=== PATIENT | male | born 1965 | race Caucasian/White ===

== ENCOUNTER → 2017-05-26 | Outpatient (CLI) | payer OTHER ==
[~2017-05-26] MED LIST: HYDR25TA4 PO; MELO15TA4 PO; METO50TA7 PO; MULT-506 PO
--- NOTE | 2017-05-26 19:23 | DIAGNOSTIC IMAGING REPORT ---
MRI OF THE RIGHT UPPER EXTREMITY CLINICAL HISTORY: Right arm mass of several years duration. COMPARISON STUDY: No priors. TECHNIQUE: MRI of the right upper extremity at the level of the mid to distal humerus is performed utilizing various T1 and T2-weighted sequences in the axial, sagittal, and coronal planes. IV contrast was not administered for this examination. FINDINGS: The visualized humerus demonstrates normal marrow signal intensity. There is no MRI evidence of fracture. The regional musculature is normal in bulk and signal intensity. There is a lobulated and well-circumscribed mass lesion identified within the lateral aspect of the triceps musculature. This measures approximately 8 x 5 x 3 cm and this follows fat signal intensity on all sequences. No additional lesion is identified. Trace joint fluid is suggested in the elbow. IMPRESSION: There is an approximately 8 cm well-circumscribed/lobulated lesion identified within the lateral aspect of the triceps musculature as above. This follows fat on all sequences and although pathologically indeterminant is typical in appearance for a lipoma. Dictated: 05/26/2017 4:26 PM Transcribed: 05/26/2017 7:23 PM [email or web address] Electronically signed by: Guero Bridges M.D. 05/26/2017 8:10 PM Dictated Date/Time: 05/26/2017 4:26 PM
== END | disposition home or self-care (01) ==
LOC: C.MRIBC 15:06
PROVIDERS: ATTEND Orthopaedic Surgery
DX: D17.23 Benign lipomatous neoplasm of skin and subcutaneous tissue of right leg (principal)

== ENCOUNTER → 2017-06-18 | Outpatient (CLI) | payer OTHER | END | disposition home or self-care (01) | LOC: C.CPL 08:10 | PROVIDERS: ATTEND Orthopaedic Surgery | DX: D17.21 Benign lipomatous neoplasm of skin and subcutaneous tissue of right arm (principal); Z01.810 Encounter for preprocedural cardiovascular examination ==

== ENCOUNTER → 2017-06-25 | Day surgery (SDC) | payer OTHER ==
[2017-06-16 11:30] VITALS: Ht 188 cm; Wt 127.3 kg
[~2017-06-25] VITALS: Ht 188 cm; Wt 127.3 kg
[~2017-06-25] MED LIST changes: +ATROPINE SULFATE 0.1 MG/ML 5ML SYR IV PRN; +CEFAZOLIN 2000MG IV PUSH 10 ML IV SCH; +DEXAMETHASONE SOD INJ 4 MG/ML VIAL ONE; +EpHEDrine SULFATE INJ 50 MG/ML AMP IV PRN; +FENTANYL CITRATE INJ 50 MCG/1 ML 2 ML VIAL IV PRN; +FENTANYL CITRATE INJ 50 MCG/1 ML 2 ML VIAL ONE; +HYDR-5688 PO; +HYDROCODONE/ACETAMOPHEN 5/325MG TAB PO PRN; +HYDROmorphone INJ 1 MG/ML SYR IV PRN; +LACTATED RINGER'S 1000ML 1,000 ML IV SCH; +LIDOCAINE HCL 2% 2 ML VIAL (20MG/ML) ONE; +LIDOCAINE HCL 2% LOCAL 20 ML VIAL ONE; +MIDAZOLAM HCL 1 MG/ML 2ML VIAL ONE; +ONDANSETRON INJ 2 MG/ML 2 ML VIAL IV PRN; +ONDANSETRON INJ 2 MG/ML 2 ML VIAL ONE; +PROMETHAZINE HCL INJ 12.5 MG in SODIUM CHLORIDE 0.9% 50ML 50 ML IV PRN; +PROPOFOL IV EMULSION 10 MG/ML 20 ML VIAL IV ONE; +SODIUM CHLORIDE 0.9% 1000ML 1,000 ML IV SCH
--- NOTE | 2017-06-25 06:59 | History & Physical Bridge - [place] ---
H&P Re-Evaluation Bridge Note: I have examined the patient, reviewed the History & Physical and in the interval since the performance of the History & Physical I have noted the following changes of clinical significance: No changes noted
--- NOTE | 2017-06-25 07:33 | OPERATIVE REPORT ---
DATE OF OPERATION: 06/25/2017 PREOPERATIVE DIAGNOSIS: Lipoma of the right triceps. POSTOPERATIVE DIAGNOSIS: Same. PROCEDURE: Excision of lipoma of the right triceps. SURGEON: Dr. Yves Villagran. SASH INSTALLER: Nicholas Fitch PA-C, whose assistance was necessary for positioning the arm and helping with closure. ANESTHESIA: General. COMPLICATIONS: None. CONDITION: Stable to PACU. INDICATIONS: Tomy is a pleasant 52-year-old male who presented to my office with complaints of a mass on his right triceps. MRI and clinical examination were diagnostic for a large lipoma. It was about the size of a racquetball. It has not grown in years but has been painful and bothersome. He elected to undergo excision. OPERATION AND FINDINGS: On 06/25/2017 he arrived at [facility] for the above procedure. He was seen in the preoperative holding area and the operative extremity was identified and signed. He was given a preoperative antibiotic, taken back to the operating room, laid on the table in supine position and put under general anesthesia. The right triceps was then prepped and draped in sterile fashion. A time-out was done and the patient and operative extremity was properly identified. A longitudinal incision was made directly over the mass. Dissection was taken down through the fascia and the lipoma was easily identified. The lipoma was herniated out of the wound and came out as 1 large mass. Again it was about the size of a racquetball, about 5 cm in diameter. The wound was then irrigated and closed with 3-0 Vicryl and 4-0 nylon suture. The surgical site was then injected with Marcaine. He was placed in a soft dressing and taken to the postanesthesia care unit in stable condition. He tolerated the procedure well. The lipoma was sent to pathology for analysis. I attest to the content of the Intraoperative Record and any orders documented therein. Any exception s are noted below.
--- NOTE | 2017-06-25 07:37 | Discharge Instructions-SurgCtr ---
Discharge Instructions Date of Service Jun 25, 2017. Visit Reason for Visit: Right Upper Limb Lipoma, Pain Discharge Discharge Diagnosis / Problem: SAME ABOVE Discharge Goals Goal(s): Decrease discomfort, Improve function Activity Recommendations Activity Limitations: as noted below Lifting Limitations: until after follow-up appointment Exercise/Sports Limitations: until after follow-up appointment Driving or Machine Use: resume 1 day after discharge Anesthesia . Post Anesthesia Instructions: If you have had General Anesthesia or IV Sedation: * Do not drive today. * Resume driving when surgeon permits. * Do not make important decisions or sign legal documents today. * Call surgeon for: 1. Temperature elevations greater than 101 degrees F. 2. Uncontrollable pain. 3. Excessive bleeding. 4. Persistent nausea and vomiting. 5. Medication intolerance (nausea, vomiting or rash). * For nausea and vomiting use only clear liquids such as: tea, soda, bouillon until nausea subsides, then gradually increase diet as tolerated. * If you have any concerns or questions, call your surgeon's office. If physician is unavailable and it is an emergency, call 911 or go to the nearest emergency room. . Instructions / Follow-Up Instructions / Follow-Up MEDICATIONS: * Resume previous medications unless instructed otherwise by your surgeon. * Always take pain medication on a full stomach or with food to avoid upset stomach. * Do not drink alcohol or drive while taking narcotics. * Ibuprofen or Tylenol may be taken if narcotic not needed. SPECIAL CARE INSTRUCTIONS: __ None _X_ Keep extremity elevated and iced x 48 hours; apply ice 20-30 minutes 8-10 times/day. May remove at night. __ Sling __24 hrs/day __ Remove at night __ Shoulder Immobilizer __ 24 hrs/day __ Remove at night _X_ Dressing __ Maintain until seen in office, may shower with plastic over site _X_ Remove dressings in 24-48 hours and then may shower _X_ Cover incisions with band-aids after showering __ Do not remove steri-strips Call physician if chills or temperature rises above 102 degrees or pain unrelieved by prescribed pain medications at . . Diet Recommendations Home Diet: no limitations Procedures Procedures Performed: Right Tricep Lipoma Excision Pending Studies Studies pending at discharge: yes List of pending studies: LIPOMA OF RIGHT TRICEPS Work Instructions Return To Work: 1 week Medical Emergencies . Who to Call and When: Medical Emergencies: If at any time you feel your situation is an emergency, please call 911 immediately. . Non-Emergent Contact Non-Emergency issues call your: Primary Care Provider Call Non-Emergent contact if: you have a fever, temperature is above 101.5 . . "Provider Documentation" section prepared by Juan Carlos Fitch. .
[2017-06-25 08:06] VITALS: TEMP 36.7
[2017-06-25 08:30] VITALS: BP 125/83; PULSE 70; O2SAT 96
--- NOTE | 2017-06-25 08:31 | Anesthesia Progress Nt - [facility] ---
Anesthesia Post Op Note Date & Time Jun 25, 2017 at 08:31 Vital Signs Pain Intensity: 0 Vital Signs Past 12 Hours Date Time Temp Pulse Resp B/P (MAP) Pulse Ox O2 Delivery O2 Flow Rate FiO2 06/25/17 08:06 36.7 67 16 125/88 (100) 93 Room Air 06/25/17 08:00 132/91 06/25/17 07:57 36.5 74 17 132/91 93 Room Air 06/25/17 07:57 64 8 06/25/17 07:57 62 8 98 06/25/17 07:55 134/100 06/25/17 07:52 71 16 06/25/17 07:52 70 16 96 06/25/17 07:51 124/92 06/25/17 07:47 78 18 95 06/25/17 07:47 77 18 06/25/17 07:46 123/91 06/25/17 07:42 78 17 97 06/25/17 07:42 77 17 06/25/17 07:40 123/83 06/25/17 07:37 83 7 06/25/17 07:37 83 7 112/82 96 06/25/17 07:37 36.4 86 12 112/82 95 Mask 06/25/17 06:22 36.9 74 16 166/103 (124) 96 Room Air Notes Mental Status: alert / awake / arousable, participated in evaluation Pt Amnestic to Procedure: Yes Nausea / Vomiting: adequately controlled Pain: adequately controlled Airway Patency, RR, SpO2: stable & adequate BP & HR: stable & adequate Hydration State: stable & adequate Anesthetic Complications: no major complications apparent Doing well. Pain controlled. No n/v. VSS. Ready for d/c
--- NOTE | 2017-06-25 13:45 | [facility] Post Operative Brief Note ---
Immediate Operative Summary Operative Date Jun 25, 2017. Pre-Operative Diagnosis Lipoma of Right Upper Arm Post-Operative Diagnosis Right Tricep Lipoma Excision Procedure(s) Performed Right Tricep Lipoma Excision Surgeon Dr. Jose Villagran Fuel Technician Surgeon(s) Jamel Fitch PA-C Estimated Blood Loss 5 cc Findings as above Specimens A. Lipoma Right Tricep Complication(s) None Disposition Recovery Room / PACU
== END | disposition home or self-care (01) ==
LOC: X.SURG 06:12
PROVIDERS: ATTEND Orthopaedic Surgery
DX: D17.21 Benign lipomatous neoplasm of skin and subcutaneous tissue of right arm (principal); E66.9 Obesity, unspecified; Z68.36 Body mass index [BMI] 36.0-36.9, adult; Z82.49 Family history of ischemic heart disease and other diseases of the circulatory system; Z83.3 Family history of diabetes mellitus; Z82.3 Family history of stroke